=== PATIENT | male | born 1995 | race Caucasian/White ===

== ENCOUNTER 2019-11-25 19:20 | Emergency (ER) | payer OTHER ==
[2019-11-25 20:11] LABS: Influenza A Molecular Negative (Negative); Influenza B Molecular Negative (Negative)
[2019-11-25] MEDS ORDERED: NS 0.9% 1000 ML** 1,000 ML IV ONE ×2 (20:17→22:18)
[2019-11-25] MEDS ORDERED: Acetaminophen TAB* 325 MG PO ONE (20:17)
[2019-11-25 20:55] LABS: Hematocrit 48 % (42-52); Hemoglobin 16.2 g/dL (14.0-18.0); Mean Corpuscular HGB Conc 34 g/dL (31-36); Mean Corpuscular Hemoglobin 30 pg (27-31); Mean Corpuscular Volume 87 fL (80-94); Mean Platelet Volume 9.2 fL (7.4-10.4); Platelet Count 142 10^3/uL (150-450); Red Blood Count 5.45 10^6 /uL (4.18-5.48); Red Cell Distribution Width 14 % (10-15); White Blood Count 6.2 10^3/uL (3.5-10.8)
[2019-11-25 21:04] LABS: Albumin 4.9 g/dL (3.2-5.2); Calcium 9.4 mg/dL (8.6-10.3); Potassium 3.7 mmol/L (3.5-5.0); Total Bilirubin 0.9 mg/dL (0.2-1.0)
[2019-11-25 21:10] LABS: Albumin/Globulin Ratio 2.2 (1-3); BUN/Creatinine Ratio 11.7 (8-20); EGFR Non-African American 70.3 (>60); Globulin 2.2 g/dL (2-4); Total Protein 7.1 g/dL (6.4-8.9)
[2019-11-25] MEDS ORDERED: Ketorolac INJ* 30 MG/ML 1 ML VIAL IV PUSH ONE (21:20)
[2019-11-25 21:53] LABS: ABS Lymphocytes 0.5 10^3/ul (1.0-4.8); ABS Monocytes 0.6 10^3/ul (0-0.8); Eosinophil % 0.2 %; Lymphocyte % 8.2 %
--- NOTE | 2019-11-25 22:05 | ED ---
Influenza-Like Illness - HPI Summary HPI Summary: 24 year old male presents with syncope today. He states he was walking to the bathroom and passed out for couple seconds. He states the abdominal pain nausea vomiting diarrhea. No chest pain or shortness of breath. No cough. No sore throat. Admits to headache. No neck stiffness. Has had a fever. Took some tylenol earlier. Has no significant medical history. no medical conditions. has not eaten anything today. - History of Current Complaint Chief Complaint: EDFluSymptoms Time Seen by Provider: 11/25/19 20:55 - Allergy/Home Medications Allergies/Adverse Reactions: Allergies Allergy/AdvReac Type Severity Reaction Status Date / Time No Known Allergies Allergy Verified 11/25/19 19:40 PMH/Surg Hx/FS Hx/Imm Hx Infectious Disease History: No Infectious Disease History: Denies: Traveled Outside the [place] in Last 30 Days - Social History Alcohol Use: Weekly Alcohol Amount: ~2 drinks/week Substance Use Type: Reports: None Smoking Status (MU): Never Smoked Tobacco Review of Systems Positive: Fever, Fatigue Negative: Chest Pain Positive: Cough. Negative: Shortness Of Breath Positive: Abdominal Pain, Diarrhea, Nausea Positive: Syncope All Other Systems Reviewed And Are Negative: Yes Physical Exam Triage Information Reviewed: Yes Vital Signs On Initial Exam: Initial Vitals Temp Pulse Resp BP Pulse Ox 101.7 F 119 16 90/59 99 11/25/19 19:39 11/25/19 19:39 11/25/19 19:39 11/25/19 19:39 11/25/19 19:39 Vital Signs Reviewed: Yes Appearance: Positive: Well-Appearing Skin: Positive: Warm, Dry Head/Face: Positive: Normal Head/Face Inspection Eyes: Positive: Normal, EOMI, MIRYAM, Conjunctiva Clear ENT: Positive: Normal ENT inspection, Pharynx normal, TMs normal Respiratory/Lung Sounds: Positive: Clear to Auscultation, Breath Sounds Present Cardiovascular: Positive: Normal, RRR Abdomen Description: Positive: Nontender, Soft Bowel Sounds: Positive: Present Procedures - Sedation Patient Received Moderate/Deep Sedation with Procedure: No Diagnostics - Vital Signs Vital Signs Temp Pulse Resp BP Pulse Ox 11/25/19 21:06 81 18 124/70 100 11/25/19 19:39 101.7 F 119 16 90/59 99 - Laboratory Lab Results: Lab Results 11/25/19 11/25/19 11/25/19 Range/Units 19:45 20:45 20:45 WBC 6.2 (3.5-10.8) 10^3/uL RBC 5.45 (4.18-5.48) 10^6 /uL Hgb 16.2 (14.0-18.0) g/dL Hct 48 (42-52) % MCV 87 (80-94) fL MCH 30 (27-31) pg MCHC 34 (31-36) g/dL RDW 14 (10-15) % Plt Count 142 L (150-450) 10^3/uL MPV 9.2 (7.4-10.4) fL Neut % (Auto) 81.1 % Lymph % (Auto) 8.2 % [place] % (Auto) 10.2 % Eos % (Auto) 0.2 % Baso % (Auto) 0.3 % Absolute Neuts (auto) 5.0 (1.5-7.7) 10^3/ul Absolute Lymphs (auto) 0.5 L (1.0-4.8) 10^3/ul Absolute Monos (auto) 0.6 (0-0.8) 10^3/ul Absolute Eos (auto) 0.0 (0-0.6) 10^3/ul Absolute Basos (auto) 0.0 (0-0.2) 10^3/ul Absolute Nucleated RBC 0.0 10^3/ul Neutrophils % 79.0 % Lymphocytes % 10.0 % Monocytes % 10.0 % Eosinophils % 1.0 % Nucleated RBC % 0.0 Normal RBC Morphology Normal (Normal) Hem Pathologist Commnt Pending Sodium 136 (135-145) mmol/L Potassium 3.7 (3.5-5.0) mmol/L Chloride 103 (101-111) mmol/L Carbon Dioxide 24 (22-32) mmol/L Anion Gap 9 (2-11) mmol/L BUN 15 (6-24) mg/dL Creatinine 1.28 H (0.67-1.17) mg/dL Est GFR ( Amer) 85.0 (>60) Est GFR (Non-Af Amer) 70.3 (>60) BUN/Creatinine Ratio 11.7 (8-20) Glucose 104 H (70-100) mg/dL Lactic Acid (0.5-2.0) mmol/L Calcium 9.4 (8.6-10.3) mg/dL Total Bilirubin 0.90 (0.2-1.0) mg/dL AST 20 (13-39) U/L ALT 12 (7-52) U/L Alkaline Phosphatase 45 (34-104) U/L Total Protein 7.1 (6.4-8.9) g/dL Albumin 4.9 (3.2-5.2) g/dL Globulin 2.2 (2-4) g/dL Albumin/Globulin Ratio 2.2 (1-3) Influenza A (Rapid) Negative (Negative) Influenza B (Rapid) Negative (Negative) 11/25/19 Range/Units 20:45 WBC (3.5-10.8) 10^3/uL RBC (4.18-5.48) 10^6 /uL Hgb (14.0-18.0) g/dL Hct (42-52) % MCV (80-94) fL MCH (27-31) pg MCHC (31-36) g/dL RDW (10-15) % Plt Count (150-450) 10^3/uL MPV (7.4-10.4) fL Neut % (Auto) % Lymph % (Auto) % [place] % (Auto) % Eos % (Auto) % Baso % (Auto) % Absolute Neuts (auto) (1.5-7.7) 10^3/ul Absolute Lymphs (auto) (1.0-4.8) 10^3/ul Absolute Monos (auto) (0-0.8) 10^3/ul Absolute Eos (auto) (0-0.6) 10^3/ul Absolute Basos (auto) (0-0.2) 10^3/ul Absolute Nucleated RBC 10^3/ul Neutrophils % % Lymphocytes % % Monocytes % % Eosinophils % % Nucleated RBC % Normal RBC Morphology (Normal) Hem Pathologist Commnt Sodium (135-145) mmol/L Potassium (3.5-5.0) mmol/L Chloride (101-111) mmol/L Carbon Dioxide (22-32) mmol/L Anion Gap (2-11) mmol/L BUN (6-24) mg/dL Creatinine (0.67-1.17) mg/dL Est GFR ( Amer) (>60) Est GFR (Non-Af Amer) (>60) BUN/Creatinine Ratio (8-20) Glucose (70-100) mg/dL Lactic Acid 1.0 (0.5-2.0) mmol/L Calcium (8.6-10.3) mg/dL Total Bilirubin (0.2-1.0) mg/dL AST (13-39) U/L ALT (7-52) U/L Alkaline Phosphatase (34-104) U/L Total Protein (6.4-8.9) g/dL Albumin (3.2-5.2) g/dL Globulin (2-4) g/dL Albumin/Globulin Ratio (1-3) Influenza A (Rapid) (Negative) Influenza B (Rapid) (Negative) Result Diagrams: 11/25/19 20:45 11/25/19 20:45 Lab Statement: Any lab studies that have been ordered have been reviewed, and results considered in the medical decision making process. Re-Evaluation - Re-Evaluation First Eval Re-Evaluation Time: 22:18 Comment: vitals orthostatic but not feeling dizzy Second Eval Re-Evaluation Time: 23:02 Comment: feeling better Flu Symptom Course/Dx - Course Course Of Treatment: 24 year old male presents with syncope today. He states he was walking to the bathroom and passed out for couple seconds. He states the abdominal pain nausea vomiting diarrhea. No chest pain or shortness of breath. No cough. No sore throat. Admits to headache. No neck stiffness. Has had a fever. Took some tylenol earlier. Has no significant medical history. On exam initially has a fever. lab work wnl. Abdomen mild diffuse tenderness. wbc normal. electrolytes normal. Gave liter fluid and still orthostatic. Give another liter and tolerated food will in ED. Patient is feeling better. We'll discharge to have follow-up with [facility]. Patient understands and agrees the plan. - Diagnoses Differential Diagnosis/HQI/PQRI: Positive: Influenza, Pneumonia, Upper Respiratory Infection Provider Diagnoses: Syncope, Viral syndrome, Orthostatic hypotension Discharge ED - Sign-Out/Discharge Documenting (check all that apply): Patient Departure - Discharge Plan Condition: Good Disposition: HOME Patient Education Materials: Syncope (ED) Referrals: [facility] Luisito BLACK [Primary Care Provider] - Additional Instructions: Take Tylenol and ibuprofen for muscle aches and fever every 6 hours stand up slowly Drink plenty of fluids [facility] Return to ED if develop any new or worsening symptoms - Billing Disposition and Condition Condition: GOOD Disposition: Home
[2019-11-25 23:24] VITALS: BP 114/57
== END 2019-11-25 23:23 | disposition home or self-care (01) ==
LOC: ED 19:20
DX: I95.1 Orthostatic hypotension (principal); B34.9 Viral infection, unspecified
CPT/HCPCS: 36415; 80053; 83605; 85025; 85060; 93005; 96361; 96374; 99283; A9270-GY; J1885